=== PATIENT | male | born 2000 | race Asian ===

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

== ENCOUNTER 2021-08-29 11:36 | Emergency (ER) | payer OTHER ==
[~2021-08-29] VITALS: Ht 175.3 cm; Wt 68.5 kg
[2021-08-29 11:57] VITALS: BP 110/63
[2021-08-29] MEDS ORDERED: NAPR-54 PO (12:13)
[2021-08-29] MEDS ORDERED: PROM118S5 PO (12:13)
[2021-08-29] MEDS ORDERED: AZIT250T4 PO (12:13)
[2021-08-29] MEDS ORDERED: PRED20TA5 PO (12:13)
--- NOTE | 2021-08-29 12:29 | NUR ---
PT SEEN AND D/C BY AGUSTIN MARQUEZ, NO NURSING INTERVENTIONS PROVIDED
--- NOTE | 2021-08-29 12:30 | NUR ---
Patient discharged with v/s stable. Written and verbal after care instructions ABOUT TONSILLITIS given and explained. Patient alert, oriented and verbalized understanding of instructions. Ambulatory with steady gait. All questions addressed prior to discharge. ID band removed. Patient advised to follow up with PMD. Rx of ZITHROMAX PACK, NAPROXEN, PREDNISONE, AND PROMETHAZINE DM SYRUP given. Patient educated on indication of medication including possible reaction and side effects. Opportunity to ask questions provided and answered.
== END 2021-08-29 12:30 | disposition home or self-care (01) ==
LOC: MED 11:36
DX: J06.9 Acute upper respiratory infection, unspecified (principal)
CPT/HCPCS: 99283

== ENCOUNTER 2022-07-08 16:07 | Emergency (ER) | payer OTHER ==
[~2022-07-08] VITALS: Ht 175.3 cm; Wt 73.5 kg
[~2022-07-08 16:07] MED LIST: AZIT250T4 PO; NAPR-54 PO; PRED20TA5 PO; PROM118S5 PO
[2022-07-08 16:12] VITALS: BP 133/78
--- NOTE | 2022-07-08 17:03 | NUR ---
21 y/o male, c/o throat pain 5/10 since yesterday. pt states he has a fishbone stuck behind left tonsil. a&ox4, ambulates with even and steady gait. lung sounds even bl, heart sounds even and regular. pt states he has tried self induced vomiting to try and get bone out. states it feels more agitation than pain. pmh: denies nka med: denies
--- NOTE | 2022-07-08 17:08 | NUR ---
Patient discharged with v/s stable. Written and verbal after care instructions given and explained. Patient verbalized understanding. Ambulatory with steady gait. All questions addressed prior to discharge. Advised to follow up with PMD.
[2022-07-08 17:09] VITALS: BP 133/78
== END 2022-07-08 17:08 | disposition home or self-care (01) ==
LOC: MED 16:07
DX: R07.0 Pain in throat (principal)
CPT/HCPCS: 70360; 99283

== ENCOUNTER 2022-10-10 02:37 | Emergency (ER) | payer OTHER ==
[~2022-10-10] VITALS: Ht 175.3 cm; Wt 71.7 kg
--- NOTE | 2022-10-10 02:37 | NUR ---
FIDEL LOCKETTS TO BED #9
--- NOTE | 2022-10-10 02:37 | NUR ---
Dr. Mclaughlin examining patient.
[2022-10-10 02:39] VITALS: BP 120/66
[2022-10-10] MEDS ORDERED: MORPHINE SULFATE 4 MG/ML SYR ONE ×2 (02:40→03:19)
[2022-10-10] MEDS ORDERED: MORPHINE SULFATE 10 MG/ML VIAL IVP ONE (02:40)
--- NOTE | 2022-10-10 02:47 | NUR ---
RADIOLOGY AT BEDSIDE
--- NOTE | 2022-10-10 02:49 | NUR ---
xray at bedside
[2022-10-10] MEDS ORDERED: PROPOFOL 200 MG/20 ML VIAL IV ONE (03:15)
[2022-10-10] MEDS ORDERED: ONDANSETRON 4 MG/2 ML VIAL IVP ONE (03:15)
[2022-10-10] MEDS ORDERED: MORPHINE SULFATE 4 MG/ML SYR IVP ONE (03:20)
--- NOTE | 2022-10-10 03:43 | NUR ---
RIGHT ELBOW REDUCTION PROCEDURE STARTED AT 0325 AND ENDED AT 032. REDUCTION WAS SUCCESSFUL. NO CONSCIOUS SEDATION DONE. PT. TOLERATED WELL.
--- NOTE | 2022-10-10 03:48 | NUR ---
LONG ARM POSTERIOR SPLINT AND SLING APPLIED TO RIGHT ARM, + CMS BEFORE AND AFTER APPLICATION
[2022-10-10] MEDS ORDERED: IBUP-2213 PO (03:53)
[2022-10-10] MEDS ORDERED: ACET-8905 PO (04:00)
[2022-10-10 04:05] VITALS: BP 108/73
--- NOTE | 2022-10-10 04:17 | NUR ---
Patient discharged with v/s stable. Written and verbal after care instructions given and explained. Patient alert, oriented and verbalized understanding of instructions. Ambulatory with steady gait. All questions addressed prior to discharge. ID band removed. Patient advised to follow up with orthopedic surgeon in 1-2 weeks. Rx of IBUPROFEN AND NORCO given. Patient educated on indication of medication including possible reaction and side effects. Opportunity to ask questions provided and answered.
== END 2022-10-10 04:17 | disposition home or self-care (01) ==
LOC: MED 02:37
DX: S53.124A Posterior dislocation of right ulnohumeral joint, initial encounter (principal); W18.30XA Fall on same level, unspecified, initial encounter; Y93.89 Activity, other specified; Y92.89 Other specified places as the place of occurrence of the external cause; Y99.8 Other external cause status
CPT/HCPCS: 24600; 73060; 73080; 73090; 96374; 96376; 99284; J2270; Q0092